=== PATIENT | female | born 1980 | race Caucasian/White ===

== ENCOUNTER → 2017-11-17 12:33 | Outpatient (CLI) | payer BC, SELFPAY ==
--- NOTE | 2017-11-17 12:35 | DI.MG.S_ITS ---
UNILATERAL LEFT DIGITAL DIAGNOSTIC MAMMOGRAM 3D/2D SHORT-TERM FOLLOW-UP: 11/17/2017 CLINICAL: Patient returns for a 6 month follow up of the left breast. Comparison is made to exams dated: 05/03/2017 mammogram, 04/16/2017 mammogram, 12/12/2015 mammogram, and 05/03/2017 [facility]. There are scattered fibroglandular elements in the left breast. Previously noted asymmetry in the left breast anterior depth lateral region seen on the craniocaudal view only is stable in appearance to prior exam, measuring 1.3 cm in greatest diameter (previously 1.5 cm on mammography from April 2017) and best seen on [facility] tomosynthesis slice 23/76. No other significant masses, calcifications, or other findings are seen in the breast. IMPRESSION: PROBABLY BENIGN Stable 1.3 cm asymmetry in the left breast anterior depth lateral region seen on the craniocaudal view only. A follow-up mammogram in 6 months is recommended to demonstrate stability (at which time the patient will also be due for screening mammography of the right breast). The patient is advised to monitor the area and to return sooner for reevaluation if she feels anything grow or change in her breasts. This exam was interpreted at Station ID: [id number]. NOTE: For mammograms, a report in lay terms will be sent to the patient. Approximately 15% of breast malignancies will not be visualized mammographically. In the management of a palpable breast mass, a negative mammogram must not discourage biopsy of a clinically suspicious lesion. Electronically Signed By: Zack Waller M.D. ecl/:11/17/2017 13:34:46 letter sent: Followup Recommended ACR BI-RADS Category 3: Probably benign [id number]
== END ==
PROVIDERS: Family Provider Family Medicine; PCP Family Medicine; Visit Provider Family Medicine
DX: R92.8 Other abnormal and inconclusive findings on diagnostic imaging of breast (principal); N63.20 Unspecified lump in the left breast, unspecified quadrant
CPT/HCPCS: 77065; G0279

== ENCOUNTER → 2018-05-27 08:52 | Outpatient (CLI) | payer BC, SELFPAY ==
--- NOTE | 2018-05-27 08:53 | DI.MG.S_ITS ---
BILATERAL DIGITAL DIAGNOSTIC MAMMOGRAM 3D/2D SHORT-TERM FOLLOW-UP: 05/27/2018 CLINICAL: Short follow up left breast, due bilaterally. Family history of breast cancer. Comparison is made to exams dated: 11/17/2017 mammogram, 05/03/2017 mammogram, and 04/16/2017 mammogram - [facility]. There are scattered fibroglandular elements in both breasts. There is a stable equal density asymmetry in the left breast middle depth lateral region seen on the craniocaudal view only. No other significant masses, calcifications, or other findings are seen in either breast. IMPRESSION: PROBABLY BENIGN The stable equal density asymmetry in the left breast is probably benign. A follow-up mammogram in 12 months is recommended to document continued stability. This exam was interpreted at Station ID: [id number]. NOTE: For mammograms, a report in lay terms will be sent to the patient. Approximately 15% of breast malignancies will not be visualized mammographically. In the management of a palpable breast mass, a negative mammogram must not discourage biopsy of a clinically suspicious lesion. Electronically Signed By: Julio Cesar bravo/:05/27/2018 11:37:15 letter sent: Followup Recommended ACR BI-RADS Category 3: Probably benign [id number]
== END ==
PROVIDERS: Family Provider Family Medicine; PCP Family Medicine; Visit Provider Family Medicine
DX: R92.8 Other abnormal and inconclusive findings on diagnostic imaging of breast (principal); N64.89 Other specified disorders of breast; Z80.3 Family history of malignant neoplasm of breast
CPT/HCPCS: 77066; G0279